=== PATIENT | male | born 1970 | race Caucasian/White ===

== ENCOUNTER 2021-12-06 09:16 | Emergency (ER) | payer OTHER ==
[~2021-12-06] VITALS: Ht 185.4 cm; Wt 91.8 kg
--- NOTE | 2021-12-06 09:54 | PHYS DOC ---
General Adult EDM: Chief Complaint: ABDOMINAL PAIN HPI: HPI: Patient is a 51 year old male who presents with lower abdominal pain. Patient states he was at work this morning when he had sudden lower abdominal cramping that lasted for a few minutes. Patient states that his work called and EMS and made him come to the hospital. Patient's denying abdominal pain at this time. Denies nausea/vomiting/diarrhea. Patient states the last couple of days he has had a cough with congestion. Denies fevers. No chest pain or shortness of breath. Patient has history of diabetes and hyperlipidemia. Denies tobacco or drug use. Patient's been fully vaccinated for COVID-19. Review of Systems: Review of Systems: ROS At least 10 ROS systems have been reviewed and are negative except as documented in the HPI. General: Negative except as outlined in HPI above. Skin: Negative except as outlined in HPI above. HEENT: Negative except as outlined in HPI above. Neck: Negative except as outlined in HPI above. Respiratory: Negative except as outlined in HPI above.. Cardiovascular: Negative except as outlined in HPI above. Abdomen: Negative except as outlined in HPI above. : Negative except as outlined in HPI above. Back/MSK: Negative except as outlined in HPI above. Neuro: Negative except as outlined in HPI above. Psych: Negative except as outlined in HPI above. Heart Score: C/O Chest Pain: No Risk Factors: Risk Factors: DM, Current or recent (<one month) smoker, HTN, HLP, family history of CAD, obesity. Risk Scores: Score 0 - 3: 2.5% MACE over next 6 weeks - Discharge Home Score 4 - 6: 20.3% MACE over next 6 weeks - Admit for Clinical Observation Score 7 - 10: 72.7% MACE over next 6 weeks - Early Invasive Strategies Physical Exam: PE: Constitutional: Well developed, well nourished, no acute distress, non-toxic appearance. [] HENT: Normocephalic, atraumatic, bilateral external ears normal, oropharynx moist, no oral exudates, nose normal. [] Eyes: PERRLA, EOMI, conjunctiva normal, no discharge. [] Neck: Normal range of motion, no tenderness, supple, no stridor. [] Cardiovascular:Heart rate regular rhythm, no murmur [] Lungs & Thorax: Bilateral breath sounds clear to auscultation [] Abdomen: Bowel sounds normal, soft, no tenderness, no masses, no pulsatile masses. [] Skin: Warm, dry, no erythema, no rash. [] Back: No tenderness, no CVA tenderness. [] Extremities: No tenderness, no cyanosis, no clubbing, ROM intact, no edema. [] Neurologic: Alert and oriented X 3, normal motor function, normal sensory function, no focal deficits noted. [] Psychologic: Affect normal, judgement normal, mood normal. [] EKG: EKG: [] Radiology/Procedures: Radiology/Procedures: []XR CHEST 1V 12/06/2021 9:55 AM INDICATION: Cough COMPARISON: None available TECHNIQUE: Portable frontal view of the chest is provided. FINDINGS: The cardiomediastinal silhouette is within normal limits. Lungs are clear. There are no significant pleural effusions. There is no pulmonary vascular congestion. No pneumothorax. No suspicious osseous abnormality. IMPRESSION: There is no acute cardiopulmonary process. Electronically signed by: Anita Carrasco MD (12/06/2021 10:20 AM) [id number] Course & Med Decision Making: Course & Med Decision Making Pertinent Labs and Imaging studies reviewed. (See chart for details) [] 51-year-old male who presents with lower abdominal pain that started suddenly at work. Patient symptoms have resolved. Patient does report congestion and cough for the last couple of days. Work-up in ER consisted of Covid test and chest x-ray. X-ray unremarkable. Covid test is positive. Discussed results with patient. Advised patient he needed to quarantine due to positive Covid test. Discussed [id number] medications. Ibuprofen and Tylenol for fever or chills. Patient states he understands discharge instructions. Patient is hemodynamically stable upon disposition. Dragon Disclaimer: Dragon Disclaimer: This electronic medical record was generated, in whole or in part, using a voice recognition dictation system. Departure Departure Impression: Primary Impression: COVID-19 Additional Impression: Cough Disposition: HOME / SELF CARE / HOMELESS Condition: STABLE Patient Instructions: Cough, Adult, [facility] Additional Instructions: You were seen in the emergency room for congestion, cough, lower abdominal pain. We tested you for Covid and it was positive. Take ibuprofen and Tylenol at [facility] for fever and chills. Make sure that you are quarantining. I have attached the instructions below. Return to the emergency room with worsening symptoms or concerns. Otherwise follow-up with your PCP. EMERGENCY DEPARTMENT GENERAL DISCHARGE INSTRUCTIONS Thank you for coming to [facility] Emergency Department (ED) today and trusting us with you care. We trust that you had a positive experience in our Emergency Department. If you wish to speak to the department management, you may call the Director at [phone]. YOUR FOLLOW UP INSTRUCTIONS ARE FOLLOWS: 1. Do you have a private Doctor? If you do not have a private doctor, please ask for a resource list of physicians or clinics that may be able to assist you with follow up care. 2. The Emergency Physicain has interpreted your x-rays. The X-Ray specialist will also review them. If there is a change in the findings, you will be notified in 48 hours when at all possible. 3. A lab test or culture has been done, your results will be reviewed and you will be notified if you need a change in treatment. ADDITIONAL INSTRUCTIONS AND INFORMATION: 1. Your care today has been supervised by a physician who is specially trained in emergency care. Many problems require more than one evaluation for a complete diagnosis and treatment. We recommend that you schedule your follow up appointment as recomme nded to ensure complete treatment of you illness or injury. If you are unable to obtain follow up care and continue to have a problem, or if your condition worsens, we recommend that you return to the ED. 2. We are not able to safely determine your condition over the phone nor are we able to give sound medical advice over the phone. For these safety reasons, if you call for medical advice we will ask you to come to the ED for further evaluation. 3. If you have any questions regarding these discharge instructions please call the ED at [phone]. SAFETY INFORMATION: In the interest of safety, wellness, and injury prevention; we encourage you to wear your sealbelt, if you smoke; quite smoking, and we encourage family to use a protective helmet for bicycling and other sporting events that present an increased risk for head injury. IF YOUR SYMPTOMS WORSEN OR NEW SYMPTOMS DEVELOP, OR YOU HAVE CONCERNS ABOUT YOUR CONDITION; OR IF YOUR CONDITION WORSENS WHILE YOU ARE WAITING FOR YOUR FOLLOW UP APPOINTMENT; EITHER CONTACT YOUR PRIMARY CARE DOCTOR, THE PHYSICIAN WHOSE NAME AND NUMBER YOU WERE GIVEN, OR RETURN TO THE ED IMMEDIATELY. HARDY SOTELO APRN Dec 06, 2021 09:54
--- NOTE | 2021-12-06 10:23 | RAD ---
XR CHEST 1V 12/06/2021 9:55 AM INDICATION: Cough COMPARISON: None available TECHNIQUE: Portable frontal view of the chest is provided. FINDINGS: The cardiomediastinal silhouette is within normal limits. Lungs are clear. There are no significant pleural effusions. There is no pulmonary vascular congestion. No pneumothora x. No suspicious osseous abnormality. IMPRESSION: There is no acute cardiopulmonary process. Electronically signed by: Anita Carrasco MD (12/06/2021 10:20 AM) [id number]
[2021-12-06 12:09] VITALS: BP 125/72
== END 2021-12-06 12:25 | disposition home or self-care (01) ==
LOC: ER 09:16
DX: U07.1 COVID-19 (principal); R05.9 Cough, unspecified; R10.30 Lower abdominal pain, unspecified
CPT/HCPCS: 71045; 87426; 99285-25